=== PATIENT | female | born 1950 | race Two or more races ===

== ENCOUNTER 2024-03-03 17:26 | Inpatient (IN) | payer MEDICARE, OTHER ==
[~2024-03-03] VITALS: Ht 152.4 cm; Wt 68.0 kg
[2024-03-03 17:58] LABS: BASOPHILS % (AUTO) 0.4 % (0.0-2.0); HEMATOCRIT 47.5 % (31.2-41.9); HEMOGLOBIN 15.8 g/dL (10.9-14.3); LYMPHOCYTES # (AUTO) 0.9 K/uL (0.8-4.8); LYMPHOCYTES % (AUTO) 8.2 % (20.5-51.5); MEAN CORPUSCULAR HEMOGLOBIN 28.7 uug (24.7-32.8); MEAN CORPUSCULAR HGB CONC 33 g/dL (32.3-35.6); MEAN CORPUSCULAR VOLUME 86.2 fL (75.5-95.3); MONOCYTES # (AUTO) 0.3 K/uL (0.1-1.30); MONOCYTES % (AUTO) 2.9 % (0.0-11.0); NEUTROPHILS # (AUTO) 9.6 K/uL (1.8-8.9); NEUTROPHILS % (AUTO) 88.5 % (38.5-71.5); PLATELET COUNT (AUTO) 239 K/uL (179-408); RED BLOOD CELL COUNT(AUTO) 5.51 MIL/uL (3.63-4.92); WHITE BLOOD COUNT (AUTO) 10.9 K/uL (3.8-11.8)
[2024-03-03 18:01] LABS: DIFFERENTIAL COMMENT 1
[2024-03-03 18:02] LABS: *BILIRUBIN,URIN NEGATIVE (NEGATIVE); *BLOOD, URINE NEGATIVE (NEGATIVE); *CLARITY,URINE CLEAR (CLEAR); *COLOR,URINE YELLOW (YELLOW); *KETONES,URINE NEGATIVE (NEGATIVE); *PROTEIN,URINE NEGATIVE (NEGATIVE); *UROBILINOGEN,URINE 0.2 E.U./dl (NORMAL); LEUKOCYTE ESTERASE ,URINE NEGATIVE (NEGATIVE); NITRITE, URINE NEGATIVE (NEGATIVE); UGLUCOSE NEGATIVE (NEGATIVE)
[2024-03-03 18:06] LABS: CALCIUM 9.2 mg/dL (8.5-10.1); CARBON DIOXIDE 29 mmol/L (21-32); CHLORIDE 99 mmol/L (98-107); CREATININE 1.1 mg/dL (0.6-1.3); GLUCOSE 173 mg/dL (74-106); POTASSIUM 4.6 mmol/L (3.5-5.1); SODIUM SERUM 138 mmol/L (136-145); UREA NITROGEN, BLOOD 24 mg/dL (7-18)
[2024-03-03] MEDS ORDERED: ACET325C7 PO (18:14)
[2024-03-03] MEDS ORDERED: RISP1TAB7 PO (18:14)
[2024-03-03] MEDS ORDERED: BISA10SU95 RC (18:14)
[2024-03-03] MEDS ORDERED: POLY17PO4 PO (18:14)
[2024-03-03] MEDS ORDERED: MULT-594 PO (18:14)
[2024-03-03] MEDS ORDERED: GABA-532 PO (18:14)
[2024-03-03] MEDS ORDERED: MEMA10TA PO (18:14)
[2024-03-03] MEDS ORDERED: PRED20TA PO (18:14)
[2024-03-03] MEDS ORDERED: OXYB-58 PO (18:14)
[2024-03-03] MEDS ORDERED: FERR325T28 PO (18:14)
[2024-03-03] MEDS ORDERED: BENZ0.5T43 PO (18:14)
[2024-03-03] MEDS ORDERED: ASCO500C18 PO (18:14)
[2024-03-03] MEDS ORDERED: APIX2.5T PO (18:14)
[2024-03-03] MEDS ORDERED: AMIO100T4 PO (18:14)
[2024-03-03] MEDS ORDERED: DOCU-141 PO (18:14)
[2024-03-03] MEDS ORDERED: LAMO200T10 PO (18:14)
[2024-03-03] MEDS ORDERED: APIX5TAB4 PO (18:14)
[2024-03-03 18:18] LABS: ALANINE AMINOTRANSFERASE 33 U/L (14-59); ALBUMIN 3.2 g/dL (3.4-5.0); ALKALINE PHOSPHATASE 53 U/L (50-136); ASPARTATE AMINOTRANSFERASE 9 U/L (15-37); BILIRUBIN,DIRECT 0.2 mg/dL (0.0-0.2); BILIRUBIN,TOTAL 0.7 mg/dL (0.2-1.0); ETHANOL < 3 MG/DL (0-10); TOTAL PROTEIN, SERUM 6.8 g/dL (6.4-8.2)
[2024-03-03 18:20] LABS: *AMPHETAMINE, URINE NEGATIVE (NEGATIVE); *BARBITURATE, URINE NEGATIVE (NEGATIVE); *BENZODIAZEPINE, URINE NEGATIVE (NEGATIVE); *CANNABINOID, URINE NEGATIVE (NEGATIVE); *COCCAINE, URINE NEGATIVE (NEGATIVE); *OPIATE, URINE NEGATIVE (NEGATIVE); *PHENCYCLIDINE SCREEN,URINE NEGATIVE (NEGATIVE); FENTANYL, URINE NEGATIVE (NEGATIVE)
[2024-03-03 21:00] VITALS: BP 135/90; TEMP 98.3; O2SAT 94
[2024-03-03] MEDS ORDERED: MAG HYDROX/AL HYDROX/SIMETH 30 ML LIQUID UDC PO PRN (22:15)
[2024-03-03] MEDS ORDERED: MAGNESIUM HYDROXIDE 30 ML LIQUID UDC PO PRN (22:15)
[2024-03-03] MEDS ORDERED: ACETAMINOPHEN 325 MG TABLET PO PRN (22:15)
[2024-03-03] MEDS ORDERED: CLONAZEPAM 0.5 MG TABLET PO PRN (22:15)
[2024-03-03] MEDS: BLOOD SUGAR DIAGNOSTIC 1 EACH STRIP VI ONE (22:28)
[2024-03-03] MEDS ORDERED: BISACODYL 10 MG SUPP.RECT RC PRN (23:00)
[2024-03-04 08:46] VITALS: BP 145/99; TEMP 97.9; O2SAT 98
[2024-03-04] MEDS ORDERED: APIX5TAB PO (09:22)
[2024-03-04] MEDS: AMIODARONE HCL 200 MG TABLET PO SCH (10:32)
[2024-03-04] MEDS: DOCUSATE SODIUM 100 MG CAPSULE PO SCH (10:34)
[2024-03-04] MEDS: FERROUS SULFATE 325 MG TABEC PO SCH (10:34)
[2024-03-04] MEDS: ASCORBIC ACID 500 MG TABLET PO SCH (10:35)
[2024-03-04] MEDS: MIRALAX 17 GM POWD.PACK PO SCH (10:35)
[2024-03-04] MEDS: predniSONE 20 MG TABLET PO SCH (10:36)
[2024-03-04] MEDS: MULTIVITAMINS,THERAPEUTIC TABLET PO SCH (10:36)
[2024-03-04] MEDS: OXYBUTYNIN XL 5 MG TABSR PO SCH (10:37)
[2024-03-04] MEDS: APIXABAN 2.5 MG TABLET PO SCH (10:39)
[2024-03-04] MEDS: BENZTROPINE MESYLATE 0.5 MG TABLET PO SCH (10:58)
[2024-03-04] MEDS: MEMANTINE HCL 10 MG TABLET PO SCH (10:58)
[2024-03-04] MEDS: risperiDONE 2 MG TABLET PO SCH (10:58)
[2024-03-04 15:52] VITALS: BP 108/67; TEMP 98; O2SAT 98
[2024-03-04] MEDS: APIXABAN 5 MG TABLET PO SCH (17:43)
[2024-03-04 20:00] VITALS: BP 96/67; TEMP 98.1; O2SAT 96
[2024-03-04] MEDS: GABAPENTIN 100 MG CAPSULE PO SCH (20:22)
[2024-03-05 08:46] VITALS: BP 127/86; TEMP 97.9
[2024-03-05 16:14] VITALS: BP 107/47; TEMP 97.9; O2SAT 97
[2024-03-05 20:09] VITALS: BP 120/55; TEMP 98; O2SAT 96
[2024-03-05] MEDS: TEMAZEPAM 7.5 MG CAPSULE PO PRN (20:09)
[2024-03-06 08:00] VITALS: BP 123/61; TEMP 98.1; O2SAT 97
[2024-03-06] MEDS: MUPIROCIN 2% OINT 22 GM TUBE NS SCH (09:01)
[2024-03-06 15:56] VITALS: BP 119/75; TEMP 98; O2SAT 97
[2024-03-06 20:13] VITALS: BP 120/64; TEMP 98.1; O2SAT 96
[2024-03-07 08:12] VITALS: BP 113/60; TEMP 98; O2SAT 96
[2024-03-07 15:40] VITALS: BP 100/74; TEMP 98.2; O2SAT 96
[2024-03-07 20:04] VITALS: BP 106/51; TEMP 98.1; O2SAT 96
[2024-03-08 07:54] VITALS: BP 152/92; TEMP 98.4; O2SAT 98
[2024-03-08 15:18] VITALS: BP 120/85; TEMP 98; O2SAT 97
[2024-03-08 20:04] VITALS: BP 114/67; TEMP 97.8; O2SAT 96
[2024-03-09 07:54] VITALS: BP 102/53; TEMP 98; O2SAT 98
[2024-03-09 15:55] VITALS: BP 99/48; TEMP 98.2; O2SAT 97
[2024-03-09 19:08] VITALS: BP 100/61; TEMP 98; O2SAT 98
[2024-03-10 08:08] VITALS: BP 117/77; TEMP 97.6; O2SAT 98
[2024-03-10 15:15] VITALS: BP 109/61; TEMP 98.9; O2SAT 98
[2024-03-10] MEDS: risperiDONE 2 MG TABLET PO SCH (18:54)
[2024-03-10 20:08] VITALS: BP 112/66; TEMP 97.9; O2SAT 96
[2024-03-11 07:42] VITALS: BP 130/69; TEMP 97.7; O2SAT 97
[2024-03-11 16:27] VITALS: BP 112/59; TEMP 97.8; O2SAT 97
[2024-03-11 20:00] VITALS: BP 103/75; TEMP 98.4; O2SAT 98
[2024-03-12 07:42] VITALS: BP 110/80; TEMP 98.2; O2SAT 97
[2024-03-12 17:02] VITALS: BP 109/67; TEMP 98; O2SAT 97
[2024-03-12 20:00] VITALS: BP 112/79; TEMP 97.9; O2SAT 96
[2024-03-13 08:21] VITALS: BP 108/74; TEMP 98.6; O2SAT 97
[2024-03-13 16:07] VITALS: BP 107/80; TEMP 98; O2SAT 97
[2024-03-13 19:37] VITALS: BP 105/71; TEMP 98.1; O2SAT 98
[2024-03-14 07:58] VITALS: BP 135/68; TEMP 98; O2SAT 98
[2024-03-14 15:23] VITALS: BP 104/64; TEMP 98.2; O2SAT 98
[2024-03-14 19:56] VITALS: BP 111/66; TEMP 98.1; O2SAT 96
[2024-03-15 09:36] VITALS: BP 105/61; TEMP 98; O2SAT 98
== END 2024-03-15 11:30 | DRG 885 ==
LOC: ER 17:27 → GPS 20:47
PROVIDERS: ADMIT Psychiatry & Neurology Psychiatry; ATTEND Nurse Practitioner Acute Care
DX: F29 Unspecified psychosis not due to a substance or known physiological condition (principal); R45.851 Suicidal ideations; I48.20 Chronic atrial fibrillation, unspecified; E44.0 Moderate protein-calorie malnutrition; F02.811 Dementia in other diseases classified elsewhere, unspecified severity, with agitation; F02.82 Dementia in other diseases classified elsewhere, unspecified severity, with psychotic disturbance; M06.9 Rheumatoid arthritis, unspecified; N32.81 Overactive bladder; Z79.01 Long term (current) use of anticoagulants; E88.09 Other disorders of plasma-protein metabolism, not elsewhere classified; Z68.29 Body mass index [BMI] 29.0-29.9, adult; Z22.322 Carrier or suspected carrier of Methicillin resistant Staphylococcus aureus; E66.9 Obesity, unspecified; G20.A1 Parkinson's disease without dyskinesia, without mention of fluctuations; E78.5 Hyperlipidemia, unspecified; I10 Essential (primary) hypertension; Z79.899 Other long term (current) drug therapy; R79.89 Other specified abnormal findings of blood chemistry; G62.9 Polyneuropathy, unspecified; D64.9 Anemia, unspecified
CPT/HCPCS: 36415; 85025; G0480; J7512